=== PATIENT | female | born 1990 ===

== ENCOUNTER 2019-02-01 20:00 | Inpatient (IN) | payer OTHER ==
[~2019-02-01] VITALS: Ht 160 cm; Wt 0.2 kg
[2019-02-01] MEDS ORDERED: PRENATAL VITAM1 EAC3 PO (20:30)
[2019-02-01] MEDS ORDERED: IRON150C PO (20:30)
--- NOTE | 2019-02-02 05:11 | NUR ---
0455-PT SHOWERED, SAT ON TOILET TO DRY OFF AND VOID, PT VOIDED AND THEN FAINTED, PT WAS OUT FOR APPROX 20-30 SECONDS, AWAKENED EASILY AND WAS WHEELED BACK TO BED BY 4 STAFF MEMBERS. PTS VS STABLE, BLEEDING APPROPRIATE, PT HAS A HX OF FAINTING EASILY. PT NOW SITTING IN BED EATING A SNACK AND THEN PLANS ON SLEEPING FOR AWHILE. PT AGREES TO CALL FOR ASSISSTANCE BEFORE GETTING UP UNTIL NOTIFIED OTHERWISE.
--- NOTE | 2019-02-03 08:45 | NUR ---
PT PLANNING TO DC HOME TODAY. NO LABS DRAWN AT PT REQUEST ON ADMIT AND POST DELIVERY. PT DECLINES PNV, DISCUSSED PROABLE LOW IRON PT HAS NOT BEEN TAKING PNV THROUGHOUT AND PASSED OUT IN THE SHOWER YESTERDAY POST DELIVERY. PT VERBALIZES UNDERSTANDING. BLADDER DISTENDED AND UTERUS OFF T OSIDE, ENCOURGED PT TO GET AND VOID AND THAT KEEPING HER BLADDER EMPTY WILL HELP WITH BLEEDING.
[2019-02-03] MEDS ORDERED: IBUP800 PO (10:10)
== END 2019-02-03 10:30 | disposition home or self-care (01) | DRG 807 ==
LOC: BC 20:00
PROVIDERS: ADMIT Advanced Practice Midwife
PROC: 10E0XZZ Delivery of Products of Conception, External Approach (ICD-10-PCS; principal; 2019-02-02)
PROC: 6A550ZT Pheresis of Cord Blood Stem Cells, Single (ICD-10-PCS; 2019-02-02)
DX: O99.013 Anemia complicating pregnancy, third trimester (principal); Z37.0 Single live birth; Z3A.39 39 weeks gestation of pregnancy
CPT/HCPCS: J2210; J2590

== ENCOUNTER 2020-11-20 21:18 | Inpatient (IN) | payer OTHER ==
[~2020-11-20] VITALS: Ht 160 cm; Wt 70.5 kg
[~2020-11-20 21:18] MED LIST: IBUP800 PO; IRON150C PO; PRENATAL VITAM1 EAC3 PO
[2020-11-20 22:32] LABS: Influenza A, PCR NEGATIVE (NEGATIVE); Influenza B, PCR NEGATIVE (NEGATIVE); Resp Syncytial Virus, PCR NEGATIVE (NEGATIVE); SARS-Cov-2 (COVID-19) PCR, MMC NEGATIVE (NEGATIVE)
--- NOTE | 2020-11-21 10:05 | NUR ---
RN/LC ROUNDED TO HELP W/ . PT IS AN EXPERIENCED MOM, STATES NB HAS BEEN SLEEPY BUT IS GOING WELL. DENIES QUESTIONS OR CONCERNS. FURTHER LC OFFERED IF PT DESIRES.
--- NOTE | 2020-11-21 20:37 | NUR ---
PT DISCHARGED HOME WITH BABY, ACCOMPANIED BY HER MOTHER SUGAR.
== END 2020-11-21 20:33 | disposition home or self-care (01) | DRG 776 ==
LOC: OBS 21:18 → BC 21:19 → OBS 21:24 → BC 21:25
PROVIDERS: ADMIT Advanced Practice Midwife
PROC: 10E0XZZ Delivery of Products of Conception, External Approach (ICD-10-PCS; principal; 2020-11-20)
DX: Z39.0 Encounter for care and examination of mother immediately after delivery (principal); Z20.822 Contact with and (suspected) exposure to COVID-19
CPT/HCPCS: 0241U; 59414; A9270

== ENCOUNTER 2023-03-02 11:50 | Inpatient (IN) | payer OTHER ==
[2023-03-02 12:09] VITALS: BP 118/73
[2023-03-02 13:39] VITALS: BP 110/67
[2023-03-02 14:22] LABS: BASOPHILS ABSOLUTE AUTO 0.03 K/mm3 (0.00-0.23); BASOPHILS PERCENT AUTO 0 % (0-2); EOSINOPHILS ABSOLUTE AUTO 0.04 K/mm3 (0.00-0.68); EOSINOPHILS PERCENT AUTO 1 % (0-6); IMMATURE GRAN ABSOLUTE AUTO 0.04 K/mm3 (0.00-0.10); IMMATURE GRAN PERCENT AUTO 1 % (0-1); LYMPHOCYTES PERCENT AUTO 16 % (21-46); MONOCYTES ABSOLUTE AUTO 0.54 K/mm3 (0.16-1.47); MONOCYTES PERCENT AUTO 7 % (4-13); Mean Corpuscular HGB 29.6 pg (26.0-34.0); Mean Corpuscular HGB Conc 33.3 g/dL (31.5-36.5); Mean Corpuscular Volume 89 fL (80-100); Mean Platelet Volume 10.5 fL (9.1-12.4); NEUTROPHILS ABSOLUTE AUTO 5.88 K/mm3 (1.96-9.15); NEUTROPHILS PERCENT AUTO 76 % (41-73); Platelet Count 261 K/mm3 (150-400); RDW Coefficient Variation 12.3 % (11.7-14.2); RDW Standard Deviation 39.8 fL (35.1-46.3); Red Blood Cell Count 3.71 M/mm3 (3.80-5.20); White Blood Cell Count 7.73 K/mm3 (4.00-11.30)
[2023-03-02 15:12] VITALS: BP 121/70
== END 2023-03-02 16:00 | disposition home or self-care (01) | DRG 833 ==
LOC: OBS 11:50 → BC 11:53 → OBS 13:57 → BC 14:01
PROVIDERS: ADMIT Advanced Practice Midwife
PROC: 10S0XZZ Reposition Products of Conception, External Approach (ICD-10-PCS; principal; 2023-03-02)
DX: O32.1XX0 Maternal care for breech presentation, not applicable or unspecified (principal); Z3A.39 39 weeks gestation of pregnancy; Z67.10 Type A blood, Rh positive
CPT/HCPCS: 59025; 59412; 76815; 85025; 86850; 86900; 86901; J3105

== ENCOUNTER 2023-03-18 21:11 | Inpatient (IN) | payer OTHER ==
[2023-03-18 23:22] VITALS: BP 99/59
[2023-03-18 23:48] VITALS: BP 102/51
[2023-03-19 00:41] VITALS: BP 101/50
[2023-03-19 03:55] VITALS: BP 114/89
[2023-03-19 07:37] VITALS: BP 97/54
[2023-03-19 11:28] VITALS: BP 107/58
== END 2023-03-19 17:10 | disposition home or self-care (01) | DRG 776 ==
LOC: OBS 21:11 → BC 21:12
PROVIDERS: ADMIT Registered Nurse Community Health
DX: Z39.0 Encounter for care and examination of mother immediately after delivery (principal); Z91.018 Allergy to other foods
CPT/HCPCS: A9270